=== PATIENT | male | born 1975 | race American Indian/Alaskan Native ===

== ENCOUNTER 2019-03-08 06:57 | Emergency (ER) | payer MEDICARE ==
--- NOTE | 2019-03-08 09:15 | Emergency Department Report ---
ED Rash HPI - HPI Chief Complaint: Urogenital-Male Stated Complaint: RAsh to buttocks Time Seen by Provider: 03/08/19 08:06 Duration: 3 Days Location: Other (genital and buttock) Rash Symptoms: Yes Itching, Yes Peeling, No Facial Swelling, No Tongue/Oral Swelling, No Breathing Difficulties, No Choking Sensation, No Wheezing/Dyspnea, No Blistering, No Fever, No Lightheaded, No Malaise, No Myalgias Severity: mild Other History: This is a 44-year-old male who presents to ED complaining of rash for the past 2 weeks to his genital and buttock region. 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 Patient has a cyst that he does not continue to bathroom often and for the past couple of days status radius and a burning sensation when he PEs. He denies testicular pain or swelling. 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 and desires a refill on his Valtrex that he is able to follow up with his primary care doctor ED Review of Systems ROS: Stated complaint: STD Other details as noted in HPI Comment: All other systems reviewed and negative ED Past Medical Hx - Past Medical History Previous Medical History?: No - Surgical History Additional Surgical History: Vasectomy, knee - Social History Smoking Status: Never Smoker Substance Use Type: None - Medications Home Medications: Home Medications Medication Instructions Recorded Confirmed Last Taken Type Cyclobenzaprine [Flexeril 10mg] 10 mg PO TID PRN #20 tablet 03/02/14 Unknown Rx Phenazopyridine [Pyridium] 200 mg PO BID #10 tab 03/08/19 Unknown Rx Sulfamethoxazole/Trimethoprim 1 each PO BID #20 tablet 03/08/19 Unknown Rx [Bactrim DS TAB] valACYclovir [Valtrex] 500 mg PO BID #30 tab 03/08/19 Unknown Rx Rash Exam - Exam General: Vital signs noted. No distress. Alert and acting appropriately. HEENT: No Periorbital Edema, No Conjuctival Injection, No Chemosis, No Perioral Edema, No Tongue Edema, No Uvular Edema, No Compromised Airway, No Drooling Lungs: Yes Good Air Exchange (Normal Breath Sounds) Heart: Yes Regular, No Murmur Skin: Yes Maculopapular Rash, Yes Erythema, No Urticarial Rash, No Morbilliform rash, No Bulla(e), No Excoriations, No Weeping, No Tenderness, No Edema, No Encrustations, No Other Other: Positive: Abdomen Normal, Neurologic Normal, Musculoskeletal Normal ED Course Vital Signs 03/08/19 07:16 Temperature 98.2 F Pulse Rate 77 Respiratory 18 Rate Blood Pressure 135/86 O2 Sat by Pulse 96 Oximetry ED Medical Decision Making - Medical Decision Making 44-year-old male presents with small cellulitis rash to the buttock area in the refill for Valtrex. Discussed the patient to follow up with his primary care physician at the earliest convenience given that patient is a mechanic welder truck driver. Discussed with the patient he may clean the bathroom surfaces with Clorox wipes prior to using bathrooms. Vital signs are normal patient is in no acute distress. Critical care attestation.: If time is entered above; I have spent that time in minutes in the direct care of this critically ill patient, excluding procedure time. ED Disposition Clinical Impression: Rash of genitalia Disposition: TO HOME OR SELFCARE Is pt being admited?: No Does the pt Need Aspirin: No Condition: Stable Instructions: Cellulitis (ED), Dysuria (ED) Additional Instructions: Make sure to follow up with the primary care physician as discussed. Take all your medications as you've been prescribed. If you have any worsening symptoms or develop new symptoms please return to ED immediately. Prescriptions: Sulfamethoxazole/Trimethoprim [Bactrim DS TAB] 1 each PO BID #20 tablet Phenazopyridine [Pyridium] 200 mg PO BID #10 tab valACYclovir [Valtrex] 500 mg PO BID #30 tab Referrals: ZELALEM VILLA MD [Primary Care Provider] - 3-5 Days [facility] [Outside] - 3-5 Days [facility] [Outside] - 3-5 Days Forms: Accompanied Note, Work/School Release Form(ED) Time of Disposition: 09:22
[2019-03-08 09:39] VITALS: BP 130/81
== END 2019-03-08 09:38 | disposition home or self-care (01) ==
LOC: ED 06:57
DX: L03.317 Cellulitis of buttock (principal); R21 Rash and other nonspecific skin eruption
CPT/HCPCS: 99282